=== PATIENT | male | born 1985 | race Hispanic/Latino ===

== ENCOUNTER 2024-10-23 07:11 | Emergency (ER) | payer BC ==
--- OUTSIDE RECORDS SUMMARY | 2024-10-23 07:16 | XMS REPORT | Continuity of Care Document ---
Author Name Unknown Address [address] [facility] [place] [address] [facility] Address [address] [facility] [address] [place] [address] Care Team Providers Care Horse Racing Analyst Name Role Phone Brooek Christianson Attending Clinician Unavail able No, PCP Attending Clinician Unavailable Linda Trejo Attending Clinician Unavailable Jolynn Attending Clinician Unavailable Amber Baptiste RN Attending Clinician [phone] Jennifer Beck MD Attending Clinician [phone] Sawyer Pollard MD Attending Clinician [phone] JENNIFER BECK Attending Clinician Unavailable Jolynn Admitting Clinician Unavailable Sawyer Pollard MD Admitting Clinician [phone] Payers Payer Name Policy Type Policy Number Effective Date Expirati on Date Source Blue [employer] [place] [employer] of [place] 6 [id number] 2023 00:00:00 [facility] [place] [id number] 2018 00:00:00 Problems Condition Name Condition Details Condition Category Status Onset Date Resolution Date Last Treatment Date Treating Clinician Comments Source Atypical chest pain Atypical chest pain Disease Active 11-17 00:00: 00 [facility] Pneumonia due to COVID-19 virus Pneumonia due to COVID-19 virus Disease Active 11-16 00:00: 00 [facility] FRANCO (dyspnea on exertion) FRANCO (dyspnea on exertion) Disease Active 11-16 00:00: 00 [facility] Abnormal EKG Abnormal EKG Disease Active 11-16 00:00: 00 [facility] [id number] 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 [facility] [id number] Hair loss Problem Active Com [facility] [id number] History of COVID-19 Problem Active [facility] [id number] Erectile dysfunctio n, unspecifie d erectile dysfunctio n type Problem [facility] [id number] Overweight Problem Com [facility] Contractur e of right ankle Contractur e of right ankle Problem [facility] Contractur e of left ankle Contractur e of left ankle Problem [facility] Allergies, Adverse Reactions, Alerts Allergy Name Allergy Type Status Severity Reaction(s) Onset Date Inactive Date Treating Clinician Comments Source NO KNOWN ALLERGIE S Drug Class Active [facility] Social History Social Habit Start Date Stop Date Quantity Comments Source History of Tobacco Use [facility] Sex Assigned At [facility] Exposure to SARS-CoV-2 (event) Yes [facility] Smoking Status Start Date Stop Date Source Unknown if ever smoked [facility] Never Smoker [facility] Medications Ordered Medication Name Filled Medication Name Start Date Stop Date Current Medication? Ordering Clinician Indication Dosage Frequency Signature (SIG) Comments Components Source Lidocaine Lidocaine 04-26 00:00: 00 No .5mL [facility] Celestone Soluspan (Betamethas one) Celestone Soluspan (Betamethas one) 04-26 00:00: 00 No .5mL [facility] Finasteride 1 MG Finasteride 1 MG 2020-08 006 00:00: 00 06-06 00:00 :00 No 1{table t} QD Finasterid e 1 MG dexamethaso ne (DECADRON PHOSPHATE) 6 mg in NaCl 0.9% (NS) 50 mL piggyback 11-20 14:00: 00 Yes 6mg 6 mg, IV Piggyback, DAILY, First dose (after last modificati on) on Wed11/20/20 at 0900, Until Discontinu ed, 50 mL [facility] cholecalcif amalia, vitamin D3, 25 mcg (1,000 unit) tablet 11-20 00:00: 00 Yes [id number] 2000U Take 2 tablets by mouth daily. [facility] zinc sulfate 50 mg zinc (220 mg) capsule 11-20 00:00: 00 Yes [id number] 220mg Take 1 capsule by mouth daily. [facility] codeine-gua ifenesin (GUAIATUSSI N AC) 10-100 mg/5 mL solution 11-19 19:59: 56 Yes 10mL Take 10 mL by mouth every 8 (eight) hours as needed for Cough. [facility] aspirin 81 mg chewable tablet 11-19 19:59: 56 Yes 81mg Take 81 mg by mouth every 12 (twelve) hours. [facility] benzonatate 100 mg capsule 11-19 19:59: 56 Yes 100mg Take 100 mg by mouth. [facility] albuterol 90 mcg/actuati on inhaler 11-19 17:12: 11-19 00:00 :00 No 2{puff} Inhale 2 Puffs every 6 (six) hours as needed for Wheezing or Shortness of Breath. [facility] azithromyci n 250 mg tablet 11-19 17:12: 11-19 00:00 :00 No 250mg Take 250 mg by mouth daily. Take 500 mg day 1, then 250 mg days 2 to 5. [facility] dexAMETHaso ne 1.5 mg tablet 11-19 17:12: 25 11-19 00:00 :00 No 4mg Take 4 mg by mouth daily. [facility] albuterol 90 mcg/actuati on inhaler 11-19 00:00: 00 Yes [id number] 2{puff} Inhale 2 Puffs every 4 (four) hours as needed for Wheezing or Shortness of Breath. [facility] ascorbic acid, vitamin C, 500 mg tablet 11-19 00:00: 00 Yes [id number] 500mg Take 1 tablet by mouth 2 (two) times daily. [facility] dexAMETHaso ne 6 mg tablet 11-19 00:00: 00 11-25 04:59 :00 No [id number] 6mg Take 1 tablet by mouth daily with breakfast for 5 days. [facility] dexamethaso ne (DECADRON PHOSPHATE) 4 mg in NaCl 0.9% (NS) 50 mL piggyback 11-18 15:00: 00 11-19 16:46 :06 No 4mg 4 mg, IV Piggyback, DAILY, First dose (after last modificati on) on Wed11/18/20 at 1000, Until Discontinu ed, 50 mL [facility] pantoprazol e (PROTONIX) EC tablet 40 mg 11-17 16:00: 00 Yes 40mg 40 mg, Oral, DAILY, First dose on Wed11/17/20 at 1100, Until Discontinu ed, Routine [facility] aspirin chewable tablet 81 mg 11-17 14:00: 00 Yes 81mg 81 mg, Oral, DAILY, First dose on Wed11/17/20 at 0900, Until Discontinu ed, Routine [facility] albuterol-i pratropium (COMBIVENT RESPIMAT) 20-100 mcg/actuati on inhaler 1 Puff 11-17 13:00: 00 Yes 1{puff} 1 Puff, Inhalation , QID, First dose on 11/17/21 at 0800, Until Discontinu ed, Routine
Is this order for a patient with suspected or confirmed COVID-19 infection? Yes [facility] azithromyci n (ZITHROMAX) 500 mg in NaCl 0.9% (NS) 250 mL VIAL-MATE IV piggyback 11-17 03:45: 00 11-17 15:47 :20 No 500mg 500 mg, IV Piggyback, Q24H ABX, First dose on 11/16/20 at 2245, Until Discontinu ed, 250 mL
Reas on for Anti-Infec tive: Empiric Therapy for Suspected Infection< br>Empiric Therapy Site: COVID
D uration of therapy: 7 days [facility] acetaminoph en (TYLENOL) tablet 650 mg 11-17 03:30: 00 11-17 03:36 :00 No 650mg 650 mg, Oral, ONCE, 1 dose, 11/16/20 at 2230, Routine [facility] dexamethaso ne (DECADRON PHOSPHATE) 6 mg in NaCl 0.9% (NS) 50 mL piggyback 11-17 02:30: 00 11-17 13:30 :20 No 6mg 6 mg, IV Piggyback, DAILY, First dose on 11/16/20 at 2130, Until Discontinu ed, 50 mL [facility] benzonatate (TESSALON PERLES) capsule 100 mg 11-17 02:29: 42 Yes 100mg 100 mg, Oral, TIDPRN, Starting 11/16/20 at 212, Until Discontinu ed, Routine, Cough [facility] albuterol-i pratropium (COMBIVENT RESPIMAT) 20-100 mcg/actuati on inhaler 1 Puff 11-17 02:29: 03 Yes 1{puff} 1 Puff, Inhalation , Q6HPRN, Starting 11/16/20 at 2128, Until Discontinu ed, Routine, Wheezing, Shortness of Breath
Is this order for a patient with suspected or confirmed COVID-19 infection? Yes [facility] ascorbic acid (vitamin C) (VITAMIN C) tablet 500 mg 11-17 01:00: 00 Yes 500mg 500 mg, Oral, BID, First dose on 11/16/20 at 2000, Until Discontinu ed, Routine [facility] alum-mag hydroxide-s imeth (MAALOX PLUS / MAG-AL PLUS) 200-200-20 mg/5 mL suspension 30 mL 11-17 00:00: 00 Yes 30mL 30 mL, Oral, Q6HPRN, Starting 11/16/20 at 1900, Until Discontinu ed, Routine, Indigestio n, Heartburn, Gas [facility] enoxaparin (LOVENOX) injection 40 mg 11-16 22:00: 00 Yes 40mg 40 mg, Subcutaneo us, DAILY, First dose on 11/16/20 at 1700, Until Discontinu ed, Routine [facility] aspirin tablet 325 mg 11-16 21:15: 00 11-16 20:56 :00 No 325mg 325 mg, Oral, ONCE, 1 dose, 11/16/20 at 1615, Routine [facility] zinc sulfate (ORAZINC) capsule 220 mg 11-16 21:00: 00 Yes 220mg 220 mg, Oral, DAILY, First dose on 11/16/20 at 1600, Until Discontinu ed, Routine [facility] cholecalcif amalia (vitamin D3) tablet 1,000 Units 11-16 21:00: 00 Yes 1000U 1,000 Units, Oral, DAILY, First dose on 11/16/20 at 1600, Until Discontinu ed, Routine [facility] codeine-gua ifenesin (ROBITUSSIN AC) 10-100 mg/5 mL solution 5 mL 11-16 20:13: 46 Yes 5mL 5 mL, Oral, Q6HPRN, Starting 11/16/20 at 1513, Until Discontinu ed, Routine, Cough [facility] HYDROcodone -acetaminop hen (NORCO 5) 5-325 mg tablet 1 tablet 11-16 20:10: 03 11-18 20:09 :03 No 1{tbl} 1 tablet, Oral, Q6HPRN, Starting 11/16/20 at 1510, Until 11/18/20 at 1509, Routine, Pain (scale 4-6) [facility] acetaminoph en (TYLENOL) tablet 650 mg 11-16 20:09: 52 Yes 650mg 650 mg, Oral, Q6HPRN, Starting 11/16/20 at 1509, Until Discontinu ed, Routine, Pain (scale 1-3), Temp > 38.5 C [facility] NaCl 0.9% (NS) bolus infusion 1,000 mL 11-16 20:00: 00 11-16 20:00 :01 No 1000mL at 999 mL/hr, 1,000 mL, IV Infusion, ONCE, 1 dose, 11/16/20 at 1500, STAT [facility] iohexol (OMNIPAQUE 350 BULK-100 mL) injection 100 mL 11-16 18:30: 00 11-16 18:20 :00 No [id number] 100mL 100 mL, Intravenou s, ONCE, 1 dose, 11/16/20 at 1330, Routine [facility] Finasteride 1 MG Finasteride 1 MG No 1{table t} QD Finasterid e 1 MG tadalafil 5 mg tablet TAKE ONE (1) TABLET(S) BY MOUTH DAILY. tadalafil 5 mg tablet TAKE ONE (1) TABLET(S) BY MOUTH DAILY. No tadalafil 5 mg tablet TAKE ONE (1) TABLET(S) BY MOUTH DAILY. [facility] Vital Signs Vital Name Observation Time Observation Value Comments S ource height 2024-07-04 15:30:00 65 [in_i] Commo n [facility] weight 2024-07-04 15:30:00 157.4 [lb_av] Co mmon [facility] temperature 2024-07-04 15:30:00 97.6 [degF] Com mon [facility] bmi 2024-07-04 15:30:00 26.19 kg/m2 Comm on [facility] oximetry 2024-07-04 15:30:00 98 % Commo n [facility] respiratory rate 2024-07-04 15:30:00 16 /min Common [facility] blood pressure systolic 2024-07-04 15:30:00 118 mm[Hg] [facility] blood pressure diastolic 2024-07-04 15:30:00 66 mm[Hg] [facility] height 2023-04-26 08:00:00 65 [in_i] Commo n [facility] weight 2023-04-26 08:00:00 157 [lb_av] Comm on [facility] temperature 2023-04-26 08:00:00 98.2 [degF] Com mon [facility] bmi 2023-04-26 08:00:00 26.12 kg/m2 Comm on [facility] blood pressure systolic 2023-04-26 08:00:00 120 mm[Hg] [facility] blood pressure diastolic 2023-04-26 08:00:00 84 mm[Hg] Common [facility] BP Diastolic 2022-07-14 00:00:00 75 mm[Hg] Barb bri [facility] Height 2022-07-14 00:00:00 65 [in_i] [facility] BP Systolic 2022-07-14 00:00:00 117 mm[Hg] [facility] Body Weight 2022-07-14 00:00:00 160 [lb_av] [facility] height 2021-06-04 13:40:00 65 [in_i] Commo n [facility] weight 2021-06-04 13:40:00 162.2 [lb_av] Co mmon [facility] temperature 2021-06-04 13:40:00 97.5 [degF] Com [facility] bmi 2021-06-04 13:40:00 26.99 kg/m2 Comm on [facility] oximetry 2021-06-04 13:40:00 98 % Commo n [facility] respiratory rate 2021-06-04 13:40:00 16 /min [facility] blood pressure systolic 2021-06-04 13:40:00 98 mm[Hg] Common [facility] blood pressure diastolic 2021-06-04 13:40:00 58 mm[Hg] [facility] temperature 2021-05-07 13:00:00 98.1 [degF] Com mon [facility] bmi 2021-05-07 13:00:00 27.22 kg/m2 Comm on [facility] oximetry 2021-05-07 13:00:00 98 % Commo n [facility] respiratory rate 2021-05-07 13:00:00 16 /min [facility] blood pressure systolic 2021-05-07 13:00:00 120 mm[Hg] Common [facility] blood pressure diastolic 2021-05-07 13:00:00 75 mm[Hg] [facility] height 2021-05-07 13:00:00 65 [in_i] Commo n [facility] weight 2021-05-07 13:00:00 163.6 [lb_av] Co mmon [facility] Diastolic blood pressure 2020-11-19 16:32:00 74 mm[Hg] [facility] Heart rate 2020-11-19 16:32:00 90 /min [facility] Body temperature 2020-11-19 16:32:00 36.61 Belén [facility] Oxygen saturation in Arterial blood by Pulse oximetry 2020-11-19 16:32:00 92 /min [facility] Systolic blood pressure 2020-11-19 16:32:00 122 mm[Hg] [facility] Respiratory rate 2020-11-19 16:06:00 20 /min [facility] Body height 2020-11-16 20:30:00 165.1 cm [facility] Body weight 2020-11-16 20:30:00 72.122 kg [facility] BMI 2020-11-16 20:30:00 26.46 kg/m2 [facility] Procedures Procedure Date / Time Performed Performing Clinician Source electrocardiogram 2022-07-14 00:00:00 [facility] LACTATE DEHYDROGENASE 2020-11-18 09:38:00 Melisa Pollard [facility] C-REACTIVE PROTEIN 2020-11-18 09:38:00 [facility] COMP. METABOLIC PANEL ([id number]) 2020-11-18 09:38:00 [facility] CBC WITH DIFF 2020-11-18 09:38:00 Sawyer Pollard [facility] TRANSTHORACIC ECHO (TTE) COMPLETE 2020-11-17 22:01:31 [facility] MAGNESIUM 2020-11-17 08:58:00 [facility] TROPONIN I 2020-11-17 08:58:00 [facility] 2020-11-17 08:58:00 [facility] BASIC METABOLIC PANEL (NA, K, CL, CO2, GLUCOSE, BUN, CREATININE, CA) 2020-11-17 08:58:00 [facility] LIPID PANEL ([id number])(TOTAL CHOLESTEROL, TRIGLYCERIDES, HDL) 2020-11-17 08:58:00 [facility] CBC WITH DIFF 2020-11-17 08:58:00 [facility] D-DIMER 2020-11-17 08:58:00 Peyton Rodriguez [facility] N-TERMINAL PRO-BNP 2020-11-17 08:58:00 Desmond Esquivel [facility] FREE T3 2020-11-17 08:58:00 [place], Sawyer [facility] PROCALCITONIN 2020-11-17 08:58:00 [facility] TROPONIN I 2020-11-16 23:42:00 [facility] LIPID PANEL ([id number])(TOTAL CHOLESTEROL, TRIGLYCERIDES, HDL) 2020-11-16 23:42:00 Demsond Esquivel [facility] CT CHEST PULMONARY ANGIOGRAM 2020-11-16 18:21:06 Jennifer Beck [facility] XR CHEST 1 VW 2020-11-16 17:56:18 Jennifer Beck [facility] TROPONIN I 2020-11-16 17:50:00 [facility] THYROID STIMULATING HORMONE 2020-11-16 17:50:00 [facility] HEPATIC FUNCTION PANEL ([id number]) (ALB,T.PRO,BILI T,BU/BC,ALT,AST,ALK PHOS) 2020-11-16 17:50:00 Jennifer Beck [facility] BASIC METABOLIC PANEL (NA, K, CL, CO2, GLUCOSE, BUN, CREATININE, CA) 2020-11-16 17:50:00 Jennifer Beck [facility] CBC WITH DIFF 2020-11-16 17:50:00 Jennifer Beck [facility] GLYCOSYLATED HEMOGLOBIN (A1C) 2020-11-16 17:50:00 Sawyer Pollard [facility] PROTHROMBIN TIME / INR 2020-11-16 17:50:00 Shad Beck [facility] ACTIVATED PARTIAL THRMPLAS KAILASH 2020-11-16 17:50:00 Jennifer Beck [facility] N-TERMINAL PRO-BNP 2020-11-16 17:50:00 Jennifer Beck [facility] COVID-19 (ID NOW RAPID TESTING) 2020-11-16 17:50:00 Jennifer Bcek [facility] LAB ONLY COVID INTERPRETATION 2020-11-16 17:50:00 Jennifer Beck [facility] NOTICE OF PRIVACY PRACTICES 2020-11-16 17:04:22 Doctor Unassigned, [facility] Plan of Care Planned Activity Planned Date Details Comments Source Diagnostic Test Pending 2022-07-14 00:00:00 urinalysis, dipstick [code = urinalysis, dipstick] [facility] Encounters Start Date/Time End Date/Time Encounter Type Admission Type Attending [facility] Emergency Department Facility Care Department Encounter ID Source 2024-07-04 15:00:01 Outpatient Brooke Christianson [facility] [id number] [facility] 2024-06-26 15:36:00 Outpatient Brooke Christianson [facility] [id number] [facility] 2024-02-22 16:04:00 Outpatient No, PCP [facility] [id number] [facility] 2023-04-22 11:49:00 Outpatient Linda Trejo [facility] [id number] [facility] 2023-04-20 08:10:00 Outpatient Linda Trejo [facility] [id number] [facility] 2021-08-27 14:06:59 Outpatient Linda Trejo [facility] [id number] [facility] 2021-08-27 13:57:34 Outpatient Linda Trejo [facility] [id number] [facility] 2024-08-02 00:00:00 2024-08-02 00:00:00 (TEL) STLC STLMLC [id number] [facility] 2024-07-04 00:00:00 2024-07-04 00:00:00 PREV VISIT NEW AGE 18-39 STLC STLC [id number] [facility] 2024-06-26 00:00:00 2024-06-26 00:00:00 (TEL) STLC STLMLC [id number] [facility] 2024-02-24 00:00:2024-02-24 00:00:00 (TEL) CLS CLS [id number] [facility] 2024-02-22 00:00:00 2024-02-22 00:00:00 Office Visit- New Pt.- Level 4 CLS CLS [id number] [facility] 2023-05-25 00:00:00 2023-05-25 00:00:00 (TEL) STLMLC STLMLC [id number] [facility] 2023-04-26 00:00:00 2023-04-26 00:00:00 OFFICE VISIT NEW PT LEVEL 3 STLMLC STLMLC [id number] [facility] 2022-07-23 00:00:00 2022-07-23 00:00:00 Outpatient Nguyen_S_HO U_MD VFP VFP [id number] [facility] 2022-07-22 00:00:00 2022-07-22 00:00:00 Outpatient Nguyen_S VFP VFP [id number] [facility] 2022-07-14 00:00:00 2022-07-14 00:00:00 Outpatient Nguyen_S VFP VFP [id number] [facility] 2022-07-14 00:00:00 2022-07-14 00:00:00 Mikal Rosen, DO: [id number] , [address], [place] [address] , Ph. VFP [place] - [facility] - [place] - STACIE_COSTA_Ziggy Medina (MARILIA) [id number] [facility] 2022-07-09 00:00:00 2022-07-09 00:00:00 Outpatient Nguyen_S VFP VFP [id number] [facility] 2021-06-04 00:00:00 2021-06-04 00:00:00 OFFICE VISIT EST PT LEVEL 3 STLMLC STLMLC [id number] [facility] 2021-05-23 00:00:00 2021-05-23 00:00:00 (TEL) STLMLC STLMLC [id number] [facility] 2021-05-07 00:00:00 2021-05-07 00:00:00 OFFICE VISIT NEW PT LEVEL 3 [facility] [id number] [facility] 2020-11-20 00:00:00 2020-11-20 00:00:00 Transition of Care Amber Baptiste [id number] [facility] 2020-11-16 12:18:00 2020-11-19 14:55:00 Hospital Encounter Jennifer Beck Jelani [facility] [id number] [facility] 2020-11-16 12:18:00 2020-11-16 12:18:00 Emergency X JENNIFER BECK [facility] ERT [id number] [facility] Results Test Description Test Time Test Comments Results Resul t Comments Source LAB ONLY COVID INTERPRETATION 2020-11-01 0 02:43:52 COVID DMT InterpretationInte rpretation/Recomme ndations: Molecular NAAT Tests for Active Infection with the SARS-CoV-2 Virus: The current test result is positive for the SARS-CoV-2 virus that causes COVID-19 illness. In rfvu-rn-tladylir illness, the patient may be considered no longer infectious when it has been after 10 days since symptom onset, the patient has been afebrile for 24 hours without the use of fever-reducing medications, AND other symptoms of COVID-19 are improving. However, in patients who have been severely ill with COVID-19 or are severely immunocompromised, isolation up to 20 days after symptom onset is recommended. Asymptomatic patients are considered infectious for the first 10 days subsequent to the initial positive test result. From the onset of symptoms, if any, this result is likely to remain positive up to 2-4 weeks. Tests for IgM and/or IgG Antibodies to the SARS-CoV-2 Virus: ? Testing for IgM and IgG antibodies approximately 3 weeks after illness onset will likely indicate whether the patient has produced antibodies to the SARS-CoV-2 virus. However, some patients may take longer to develop detectable antibodies, while some patients who were infected with SARS-CoV-2 may never develop antibodies. While antibodies to SARS-CoV-2 may provide some degree of immunity, at this time the strength and duration of the antibody response is unknown. Interpretation Result Comments:These interpretation comments are based upon all COVID-19 testing the patient has had at [facility], including molecular NAAT testing (more commonly known as PCR testing and Rapid ID Now testing) and antibody testing. It does not take into account any testing that a patient has had outside of the [facility] medical record. [facility] LABORATORY SERVICESCOVID [id number] Rapid ID NOW (no units) ? ? Date ? Value ? 11/16/2020 ? Positive (A) ? [facility] [id number] 13:14:27* Test Item Value Reference Range Interpretation Comme nts LDH (test code = 3102322174) 575 U/L 300-600 Lab Interpretation (test cod e = 00588-7) [facility][id number][facility]2020-[facility]-18 12:49:06* Test Item Value Reference Range Interpretation Comme nts NA (test code = 1711847898) 138 mmol/L 135-145 K (test code = 0632202005) 3.9 mmol/L 3.5-5.0 CL (test code = 2046657274) 104 mmol/L 98-108 CO2 TOTAL (test code = 0307607017) 26 mmol/L 23-31 AGAP (test code = 5857380150) 2-16 BUN (test code = 8356880346) 22 mg/dL 7-23 GLUCOSE (test code = 4151271497) 101 mg/dL 70-110 CREATININE (test code = 6544475423) 0.75 mg/dL 0.60-1.25 TOTAL BILI (test code = 3537437068) 0.6 mg/dL 0.1-1.1 CALCIUM (test code = 3760325273) 8.3 mg/dL 8.6-10.6 L T PROTEIN (test code = 7470267549) 6.4 g/dL 6.3-8.2 ALBUMIN (test code = 4963413968) 3.6 g/dL 3.5-5.0 ALK PHOS (test code = 0170611921) 76 U/L 34-122 ALTv (test code = 1742-6) 42 U/L 5-50 AST(SGOT) (test code = 7526184223) 31 U/L 13-40 eGFR (test code = 8029028363) mL/min/1.73m2 TONIA (test code = TONIA) Association of Glomerular Filtration Rate (GFR) and Staging of Kidney Disease* + --+ --+ ------+| GFR (mL/min/1.73 m2) ?| With Kidney Damage ?| ?Without Kidney Damage+ --------+ --------+ +| ?>90 ?| ?Stage one ?| ? Normal ?+ ---+ ---+ -------+| ?60-89 ?| ?Stage two ?| ? Decreased GFR ? + --+ --+ ------+| ?30-59 ?| ?Stage three ?| ? Stage three ? + --+ --+ ------+| ?15-29 ?| ?Stage four ? | ? Stage four ?+ ---+ ---+ -------+| ?<15 (or dialysis) ? ?| ?Stage five ? | ? Stage five ?+ ---+ ---+ -------+ *Each stage assumes the associated GFR level has been in effect for at least three months. ?Stages 1 to 5, with or without kidney disease, indicate chronic kidney disease. Notes: Determination of stages one and two (with eGFR >59mL/min/1.73 m2) requires estimation of kidney damage for at least three months as defined by structural or functional abnormalities of the kidney, manifested by either:Pathological abnormalities or Markers of kidney damage (including abnormalities in the composition of the blood or urine or abnormalities in imaging tests). Lab Interpretation (test code = 38892-3) Abnormal [facility] WITH [id number] 11:53:40* Test Item Value Reference Range Interpretation Comme nts WBC (test code = 6690-2) See_Comment [Automated messa ge] The system which generated this result transmitted reference range: 4.20 - 10.70 10*3/?L. The reference range was not used to interpret this result as normal/abnormal. RBC (test code = 789-8) See_Comment [Automated messa ge] The system which generated this result transmitted reference range: 4.26 - 5.52 10*6/?L. The reference range was not used to interpret this result as normal/abnormal. HGB (test code = 718-7) 14.8 g/dL 12.2-16.4 HCT (test code = 4544-3) 44.6 % 38.4-49.3 MCV (test code = 787-2) 85.4 fL 81.7-95.6 MCH (test code = 785-6) 28.4 pg 26.1-32.7 MCHC (test code = 786-4) 33.2 g/dL 31.2-35.0 RDW-SD (test code = 56097-0) 40.4 fL 38.5-51.6 RDW-CV (test code = 788-0) 12.9 % 12.1-15.4 PLT (test code = 777-3) See_Comment [Automated Greenpiea ge] The system which generated this result transmitted reference range: 150 - 328 10*3/?L. The reference range was not used to interpret this result as normal/abnormal. MPV (test code = 76416-4) 10.6 fL 9.8-13.0 NRBC/100 WBC (test code = 9675203088) See_Comment [Automated Keywee ssage] The system which generated this result transmitted reference range: 0.0 - 10.0 /100 WBCs. The reference range was not used to interpret this result as normal/abnormal. NRBC x10^3 (test code = 4931538923) <0.01 See_Comment [Automated messa ge] The system which generated this result transmitted reference range: 10*3/?L. The reference range was not used to interpret this result as normal/abnormal. GRAN MAT (NEUT) % (test code = 770-8) 77.4 % IMM GRAN % (test code = 7271619030) 0.40 % LYMPH % (test code = 736-9) 13.5 % MONO % (test code = 5905-5) 8.6 % EOS % (test code = 713-8) 0.0 % BASO % (test code = 706-2) 0.1 % GRAN MAT x10^3(ANC) (test code = 5502907634) 5.29 10*3/uL 1.99-6.95 IMM GRAN x10^3 (test code = 5467130039) 0.03 10*3/uL 0.00-0.06 LYMPH x10^3 (test code = 731-0) 0.92 10*3/uL 1.09-3.23 L MONO x10^3 (test code = 742-7) 0.59 10*3/uL 0.36-1.02 EOS x10^3 (test code = 711-2) <0.03 0.06-0.53 L BASO x10^3 (test code = 704-7) <0.03 0.01-0.09 Lab Interpretation (test code = 73839-5) [id number]03:08* Test Item Value Reference Range Interpretation Comme nts FREE T3 (test code = 3580175965) 3.71 pg/mL 2.77-5.27 Lab Interpretation (test cod e = 20487-0) [facility] 16:29:41* Test Item Value Reference Range Interpretation Comme nts Procalcitonin (test code = 5746429498) 0.07 ng/mL <0.07 H TONIA (test code = TONIA) INTERPRETATION OF PROCALCITONIN RESULTS IN ADULTS >= 18 YEARS OF AGE Initiation and discontinuation of antibiotics on patients with suspected or confirmed Lower Respiratory Tract Infection in Adults >= 18 years of age. + +-------- --------+ + -----+|Procalcitonin |Interpretation ?|Antibiotic ? ? |Considerations ? |ng/mL ? | ?|recommendation | ? + +-------- --------+ + -----+| <0.1 ? | Bacterial ? ? ?| Strongly ? ? ?| ? | ?| infection very | discouraged ? | Overruling: ? | ?| unlikely ? ? ? | ? | ? Clinically unstable ? ? ? + +-------- --------+ + ? High risk for adverse ? ? | <0.25 ?| Bacterial ? ? ?| Discouraged ? | ? outcome ? | ?| infection ? ? ?| ? | ? SEE IMPORTANT NOTE ?| ?| unlikely ? ? ? | ? | ? + +-------- --------+ + -----+| >=0.25 ? ? ? | Bacterial ? ? ?| Encouraged ? ?| ? | ?| infection ? ? ?| ? | ? | ?| likely ? | ? | Consider treatment failure ?+ +------- ---------+ -+ if levels does not decrease | >0.5 ? | Bacterial ? ? ?| Strongly ? ? ?| appropriately ? | ?| infection very | encouraged ? ?| ? | ?| likely ? | ? | ? + +-------- --------+ + -----+ Discontinuation of antibiotics in high-acuity patients with suspected or confirmed sepsis in Adults >= 18 years of age. + +-------- --------+ + -----+|Procalcitonin |Interpretation ?|Antibiotic ? ? |Considerations ? |ng/mL ? | ?|recommendation | ? + +-------- --------+ + -----+| <0.25 ?| Bacterial ? ? ?| Strongly ? ? ?| ? | ?| infection very | discouraged ? | Overruling: ? | ?| unlikely ? ? ? | ? | ? Clinically unstable ? ? ? + +-------- --------+ + ? High risk for adverse ? ? | <0.5 or drop | Bacterial ? ? ?| Discouraged ? | ? outcome ? | >80% from ? ?| infection ? ? ?| ? | ? SEE IMPORTANT NOTE ?| highest PCT ?| unlikely ? ? ? | ? | ? | level ?| ?| ? | ? + +-------- --------+ + -----+| >=0.5 ?| Bacterial ? ? ?| Encouraged ? ?| ? | ?| infection ? ? ?| ? | ? | ?| likely ? | ? | Consider treatment failure ?+ +------- ---------+ -+ if levels does not decrease | >1.0 ? | Bacterial ? ? ?| Strongly ? ? ?| appropriately ? | ?| infection very | encouraged ? ?| ? | ?| likely ? | ? | ? + +-------- --------+ + -----+ Percentage of drop of Procalcitonin calculation for Discontinuation of antibiotics in high-acuity patients with suspected or confirmed sepsis in Adults >= 18 years of age. ? Procalcitonin highest{}-Procalcitonin current{}Delta Procalcitonin = x100% ? Procalcitonin current {} IMPORTANT NOTE: Procalcitonin may be elevated without bacterial infection by physiologic stress related to trauma, kevin, chronic dialysis, metastatic cancer, surgery in the past seven days, malaria, some fungal infections, and some forms of vasculitis. The interpretation algorithm may not apply to patients with immunosuppression (equivalent of >10 mg of prednisone daily), HIV with CD4 cell count < 350 cells/mm3, active malignancy on systemic chemotherapy, solid organ transplant or hematopoietic stem cell transplantation, or hospital acquired pneumonia. Additionally, some clinical trials of procalcitonin have excluded patients with shock requiring vasopressor use, acute respiratory failure requiring mechanical ventilation, or those with known lung abscess/empyema. For further information please refer to:[email or web address] Lab Interpretation (test code = 94050-0) [facility] [id number] 16:23:02* Test Item Value Reference Range Interpretation Comme nts FREE T4 (test code = 6623585548) See_Comment [Automated messa ge] The system which generated this result transmitted reference range: 0.78 - 2.20 ng/dL:. The reference range was not used to interpret this result as normal/abnormal. Lab Interpretation (test code = 87276-4) [facility] [id number] 16:05:24* Test Item Value Reference Range Interpretation Comme nts NT-proBNP (test code = 6323274899) 120 pg/mL See_Comment [Automated message] The system which generated this result transmitted reference range: <=125. The reference range was not used to interpret this result as normal/abnormal. TONIA (test code = TONIA) Biotin has been reported to cause a negative bias, interpret results relative to patient's use of biotin. Lab Interpretation (test code = 56837-3) [id number] 10:52:53* Test Item Value Reference Range Interpretation Comments D-DIMER (test code = 8041733913) See_Comment [Automated message] The system which generated this result transmitted reference range: <0.41 ?g/mL (FEU). The reference range was not used to interpret this result as normal/abnormal. TONIA (test code = TONIA) This test may be used in conjunction with a clinical pretest probability (PTP) assessment model to exclude venous thromboembolism (VTE) in patients suspected of deep venous thrombosis (DVT) and pulmonary embolism (PE) A D-Dimer value less than 0.50 ?g/ml (FEU) has a negative predicative value of 96 to 100% (95% CI)and 97 to 100% (95% CI) as an aid in the diagnosis of deep vein thrombosis (DVT) and pulmonary embolism when there is low or moderate pretest probability of PE or DVT. D-Dimer values are expressed in initial fibrinogen equivalent units (FEU)" The assay results should be used with other information, including the clinical context, in forming a diagnosis. Lab Interpretation (test code = 16244-6) [facility] [id number] 10:47:31* Test Item Value Reference Range Interpretation Comme nts TROPONIN I (test code = 7511757291) 0.002 ng/mL See_Comment [Automated message] The system which generated this result transmitted reference range: <=0.034. The reference range was not used to interpret this result as normal/abnormal. TONIA (test code = TONIA) Equal or Less than 0.034 ng/ml---Normal ?Note: Cardiac troponin begins to rise 3-4 hours after the onset of ischemia. Repeat in 4-6 hours if the sample was drawn within 3-4 hours of the onset of the symptom and found normal. Between 0.035 and 0.120 ng/mL--- Borderline. Questionable myocardial injury or necrosis ? ?Note: Serial measurement may be necessary to confirm or exclude the diagnosis of myocardial injury or necrosis; Clinical correlation (symptoms, EKGs, imaging studies, and others) required; Repeat in 4-6 hours if clinically indicated. ? Equal or Higher than 0.121 ng/mL---Abnormal. Myocardial Injury or Necrosis Likely ? Biotin has been reported to cause a negative bias, interpret results relative to patient's use of biotin. ? Lab Interpretation (test code = 09214-0) [facility] [id number] 10:39:13* Test Item Value Reference Range Interpretation Comme nts MAGNESIUM (test code = 6549369027) 1.9 mg/dL 1.7-2.4 Lab Interpretation (test cod e = 58806-1) [facility] (Total Cholesterol, Triglycerides, HDL)2020-11-17 10:39:13* Test Item Value Reference Range Interpretation Comme nts CHOL (test code = 3429470200) 119 mg/dL 120-200 L HDL (test code = 7604932123) 45 mg/dL >40 HDLC RATIO (test code = 0150396578) See_Comment [Automated Monstrous] The system which generated this result transmitted reference range: <=5.0. The reference range was not used to interpret this result as normal/abnormal. TRIG (test code = 2655011432) 141 mg/dL 30-170 LDL CHOL (test code = 34230-0) 46 mg/dL See_Comment [Automated Monstrous] The system which generated this result transmitted reference range: <=160. The reference range was not used to interpret this result as normal/abnormal. VLDL (test code = 8336250731) 28 mg/dL 5-60 Lab Interpretation (test code = 88554-7) Abnormal [facility] Metabolic Panel (NA, K, CL, CO2, GLUCOSE, BUN, CREATININE, CA)2020-11-17 10:38:53* Test Item Value Reference Range Interpretation Comme nts NA (test code = 5000008745) 137 mmol/L 135-145 K (test code = 9422452938) 4.0 mmol/L 3.5-5.0 CL (test code = 3607954559) 105 mmol/L 98-108 CO2 TOTAL (test code = 7979831251) 28 mmol/L 23-31 AGAP (test code = 7656394728) 2-16 BUN (test code = 5587414338) 21 mg/dL 7-23 GLUCOSE (test code = 5177649156) 143 mg/dL 70-110 H CREATININE (test code = 5882617340) 0.76 mg/dL 0.60-1.25 CALCIUM (test code = 1618066414) 8.3 mg/dL 8.6-10.6 L eGFR (test code = 7865742697) mL/min/1.73m2 TONIA (test code = TONIA) Association of Glomerular Filtration Rate (GFR) and Staging of Kidney Disease* + --+ --+ ------+| GFR (mL/min/1.73 m2) ?| With Kidney Damage ?| ?Without Kidney Damage+ --------+ --------+ +| ?>90 ?| ?Stage one ?| ? Normal ?+ ---+ ---+ -------+| ?60-89 ?| ?Stage two ?| ? Decreased GFR ? + --+ --+ ------+| ?30-59 ?| ?Stage three ?| ? Stage three ? + --+ --+ ------+| ?15-29 ?| ?Stage four ? | ? Stage four ?+ ---+ ---+ -------+| ?<15 (or dialysis) ? ?| ?Stage five ? | ? Stage five ?+ ---+ ---+ -------+ *Each stage assumes the associated GFR level has been in effect for at least three months. ?Stages 1 to 5, with or without kidney disease, indicate chronic kidney disease. Notes: Determination of stages one and two (with eGFR >59mL/min/1.73 m2) requires estimation of kidney damage for at least three months as defined by structural or functional abnormalities of the kidney, manifested by either:Pathological abnormalities or Markers of kidney damage (including abnormalities in the composition of the blood or urine or abnormalities in imaging tests). Lab Interpretation (test code = 07931-8) Abnormal [facility] with [id number] 10:19:49* Test Item Value Reference Range Interpretation Comme nts WBC (test code = 6690-2) See_Comment [Performance Lab] The system which generated this result transmitted reference range: 4.20 - 10.70 10*3/?L. The reference range was not used to interpret this result as normal/abnormal. RBC (test code = 789-8) See_Comment [Performance Lab] The system which generated this result transmitted reference range: 4.26 - 5.52 10*6/?L. The reference range was not used to interpret this result as normal/abnormal. HGB (test code = 718-7) 13.6 g/dL 12.2-16.4 HCT (test code = 4544-3) 41.5 % 38.4-49.3 MCV (test code = 787-2) 86.3 fL 81.7-95.6 MCH (test code = 785-6) 28.3 pg 26.1-32.7 MCHC (test code = 786-4) 32.8 g/dL 31.2-35.0 RDW-SD (test code = 19380-2) 40.5 fL 38.5-51.6 RDW-CV (test code = 788-0) 12.9 % 12.1-15.4 PLT (test code = 777-3) See_Comment [Automated messa ge] The system which generated this result transmitted reference range: 150 - 328 10*3/?L. The reference range was not used to interpret this result as normal/abnormal. MPV (test code = 86309-0) 10.8 fL 9.8-13.0 NRBC/100 WBC (test code = 1196485906) See_Comment [Automated Keywee ssage] The system which generated this result transmitted reference range: 0.0 - 10.0 /100 WBCs. The reference range was not used to interpret this result as normal/abnormal. NRBC x10^3 (test code = 4349033276) <0.01 See_Comment [Automated messa ge] The system which generated this result transmitted reference range: 10*3/?L. The reference range was not used to interpret this result as normal/abnormal. GRAN MAT (NEUT) % (test code = 770-8) 83.1 % IMM GRAN % (test code = 6408890348) 0.30 % LYMPH % (test code = 736-9) 8.5 % MONO % (test code = 5905-5) 7.9 % EOS % (test code = 713-8) 0.0 % BASO % (test code = 706-2) 0.2 % GRAN MAT x10^3(ANC) (test code = 0182784297) 5.44 10*3/uL 1.99-6.95 IMM GRAN x10^3 (test code = 0262975767) <0.03 0.00-0.06 LYMPH x10^3 (test code = 731-0) 0.56 10*3/uL 1.09-3.23 L MONO x10^3 (test code = 742-7) 0.52 10*3/uL 0.36-1.02 EOS x10^3 (test code = 711-2) <0.03 0.06-0.53 L BASO x10^3 (test code = 704-7) <0.03 0.01-0.09 Lab Interpretation (test code = 53644-1) [facility] ([facility])(TOTAL CHOLESTEROL, TRIGLYCERIDES, HDL)2020-11-17 06:04:12* Test Item Value Reference Range Interpretation Comme nts CHOL (test code = 2729739986) 128 mg/dL 120-200 HDL (test code = 9751490347) 48 mg/dL >40 HDLC RATIO (test code = 6698161200) See_Comment [Automated Monstrous] The system which generated this result transmitted reference range: <=5.0. The reference range was not used to interpret this result as normal/abnormal. TRIG (test code = 6761048205) 127 mg/dL 30-170 LDL CHOL (test code = 96903-5) 55 mg/dL See_Comment [Automated Monstrous] The system which generated this result transmitted reference range: <=160. The reference range was not used to interpret this result as normal/abnormal. VLDL (test code = 8523384184) 25 mg/dL 5-60 Lab Interpretation (test code = 73068-9) [facility] [id number] 00:32:18* Test Item Value Reference Range Interpretation Comme nts TROPONIN I (test code = 7714300897) 0.004 ng/mL See_Comment [Automated message] The system which generated this result transmitted reference range: <=0.034. The reference range was not used to interpret this result as normal/abnormal. TONIA (test code = TONIA) Equal or Less than 0.034 ng/ml---Normal ?Note: Cardiac troponin begins to rise 3-4 hours after the onset of ischemia. Repeat in 4-6 hours if the sample was drawn within 3-4 hours of the onset of the symptom and found normal. Between 0.035 and 0.120 ng/mL--- Borderline. Questionable myocardial injury or necrosis ? ?Note: Serial measurement may be necessary to confirm or exclude the diagnosis of myocardial injury or necrosis; Clinical correlation (symptoms, EKGs, imaging studies, and others) required; Repeat in 4-6 hours if clinically indicated. ? Equal or Higher than 0.121 ng/mL---Abnormal. Myocardial Injury or Necrosis Likely ? Biotin has been reported to cause a negative bias, interpret results relative to patient's use of biotin. ? Lab Interpretation (test code = 73590-0) [facility] Hemoglobin (A1C)2020-11-17 00:23:19* Test Item Value Reference Range Interpretation Comme nts HGB A1C (test code = 4548-4) 5.6 % 4.0-5.7 TONIA (test code = TONIA) Reference RangesNormal: <5.7%Prediabetes: 5.7 - 6.4%Diabetes: > 6.5% Lab Interpretation (test code = 15155-4) [facility]Thy[facility]ulating Hormone (TSH)2020-11-16 23:51:54* Test Item Value Reference Range Interpretation Comme nts TSH (test code = 3770229918) See_Comment L Biotin has been reported to cause a negative bias, interpret results relative to patient's use of biotin. [Automated message] The system which generated this result transmitted reference range: 0.45 - 4.70 mIU/L. The reference range was not used to interpret this result as normal/abnormal. Lab Interpretation (test code = 96596-9) Abnormal [facility] 1 [id number] 18:56:26Bilateral interstitial abnormality and patchy airspace opacities concerningfor underlying atypical infection such as Covid 19. Preliminary Report Dictated by Resident: Mik Rizo MD., have reviewed this study and agree with theabove report.EXAM: XR CHEST 1 VW 11/16/2020 12:52 PM HISTORY: 35 years-old Male with dyspnea COMPARISON: CR,none TECHNIQUE: AP chest radiograph. FINDINGS: The lungs are underinflated. Scattered bilateral patchy airspace andinterstitial abnormalities concerning for infection. No pleural effusion orpneumothorax. The cardiomediastinal silhouette is normal in size. No acute osseous abnormalities. [facility], Radiant Results Inft User - 11/16/2020 1:57 PMCDTEXAM: XR CHEST 1 VW 11/16/2020 12:52 PMHISTORY: 35 years-old Male with dyspnea COMPARISON: CR,none TECHNIQUE: AP chest radiograph.FINDINGS:The lungs are underinflated. Scattered bilateral patchy airspace andinterstitial abnormalities concerning for infection. No pleural effusion orpneumothorax. The cardiomediastinal silhouette is normal in size.No acute osseous abnormalities.IMPRESSIONBilateralinterstitial abnormality and patchy airspace opacities concerningfor underlying atypical infection such as Covid 19.Preliminary Report Dictated by Resident: Mik Alberto MD., have reviewed this study and agree with theabove report.[facility] 2020-11-16 18:55:00No acute or chronic pulmonary embolism through the level of the proximalsubsegmental branches. Bilateral multifocal patchy and confluent groundglass airspace opacitiescompatible with patient's document history of COVID-19. Preliminary Report Dictated by Resident: Mik Dodd MD., have reviewed this study and agree with theabove report.PROCEDURE: CT CHEST WITH CONTRAST- CHEST PE PROTOCOL CLINICAL INDICATION: PE suspected, intermediate prob, positive D-dimer ? Comparison: ?Same day radiograph TECHNIQUE: Volumetric helical CT angiogram was performed of the chest (lungapices to bases) with IV contrast. Images were reconstructed at 1.25 mmslice thickness. Corresponding axial, sagittal and coronal MIP images wereperformed. Axial MIPs and coronal and sagittal MPR imageswere generatedand reviewed.. FINDINGS: HEART AND GREAT VESSELS: Contrast bolus timing is adequate to borderlinesuboptimal for evaluation of pulmonary arterial vasculature. No fillingdefects are seen through the level of the proximal subsegmental pulmonaryarteries.The pulmonary trunk is normal in caliber. The thoracic aorta is normal in caliber. The heart is normal in size. No pericardial effusion. No coronary arterycalcifications. MEDIASTINUM, LYMPH NODES AND LOWER NECK: Partially visualized thyroid isunremarkable. Mildly prominent right hilar lymph node measures 1.2 cm in short axis,likely reactive. No left hilar, mediastinal or axillary lymphadenopathy. LUNGS AND PLEURA: Multiple bilateral irregular patchy groundglass/airspaceopacities. No pleural abnormality detected. Central airways are patent. VISUALIZED UPPER ABDOMEN: The included solid organs and hollow viscusappear within normallimits. OSSEOUS STRUCTURES AND SOFT TISSUES: No focal osseous lesions are detected.Multilevel Schmorl's nodes most prominent within the thoracolumbarjunction. [facility], Radiant Results Inft User - 11/16/2020 1:56 PM CDTPROCEDURE: CT CHEST WITH CONTRAST- CHEST PE PROTOCOLCLINICAL INDICATION: PE suspected, intermediate prob, positive D-dimer Comparison: Same day radiographTECHNIQUE: Volumetric helical CT angiogram was performed of the chest (lungapices to bases) with IV contrast. Images were reconstructed at 1.25 mmslice thickness. Corresponding axial, sagittal and coronal MIP images wereperformed.Axial MIPs and coronal and sagittal MPR images were generatedand reviewed..FINDINGS:HEART AND GREATVESSELS: Contrast bolus timing is adequate to borderlinesuboptimal for evaluation of pulmonary arterial vasculature. No fillingdefects are seen through the level of the proximal subsegmental pulmonary arteries.The pulmonary trunk is normal in caliber.The thoracic aorta is normal in caliber.The heartis normal in size. No pericardial effusion. No coronary arterycalcifications.MEDIASTINUM, LYMPH NODES AND LOWER NECK: Partially visualized thyroid isunremarkable.Mildly prominent right hilar lymph node measures 1.2 cm in short axis,likely reactive. No left hilar, mediastinal or axillary lymphadenopathy.LUNGS AND PLEURA: Multiple bilateral irregular patchy groundglass/airspaceopacities. No pleuralabnormality detected.Central airways are patent. VISUALIZED UPPER ABDOMEN: The included solid organs and hollow viscusappear within normal limits.OSSEOUS STRUCTURES AND SOFT TISSUES: No focal osseouslesions are detected.Multilevel Schmorl's nodes most prominent within the thoracolumbarjunction. IMPRESSIONNo acute or chronic pulmonary embolism through the level of the proximalsubsegmental branches.Bilateral multifocal patchy and confluent groundglass airspace opacitiescompatible with patient's document history of COVID-19.Preliminary Report Dictated by Resident: Mik Vieyra MD., have reviewed this study and agree with theabove report. [facility] HospitalTrjennifern [id number] 18:33:11* Test Item Value Reference Range Interpretation Comme nts TROPONIN I (test code = 7751198758) 0.002 ng/mL See_Comment [Automated message] The system which generated this result transmitted reference range: <=0.034. The reference range was not used to interpret this result as normal/abnormal. TONIA (test code = TONIA) Equal or Less than 0.034 ng/ml---Normal ?Note: Cardiac troponin begins to rise 3-4 hours after the onset of ischemia. Repeat in 4-6 hours if the sample was drawn within 3-4 hours of the onset of the symptom and found normal. Between 0.035 and 0.120 ng/mL--- Borderline. Questionable myocardial injury or necrosis ? ?Note: Serial measurement may be necessary to confirm or exclude the diagnosis of myocardial injury or necrosis; Clinical correlation (symptoms, EKGs, imaging studies, and others) required; Repeat in 4-6 hours if clinically indicated. ? Equal or Higher than 0.121 ng/mL---Abnormal. Myocardial Injury or Necrosis Likely ? Biotin has been reported to cause a negative bias, interpret results relative to patient's use of biotin. ? Lab Interpretation (test code = 46149-7) [id number] 18:30:13* Test Item Value Reference Range Interpretation Comme [facility] NT-proBNP (test code = 9359306241) 60 pg/mL See_Comment [Automated message] The system which generated this result transmitted reference range: <=125. The reference range was not used to interpret this result as normal/abnormal. TONIA (test code = TONIA) Biotin has been reported to cause a negative bias, interpret results relative to patient's use of biotin. Lab Interpretation (test code = 22317-2) [id number]:25:50* Test Item Value Reference Range Interpretation Comme [facility] APTT Patient (test code = 3173-2) See_Comment [Automated message] The system which generated this result transmitted reference range: 23 - 38 Seconds. The reference range was not used to interpret this result as normal/abnormal. TONIA (test code = TONIA) The [facility] patient population mean normal value for aPTT is 30 seconds. Lab Interpretation (test code = 42241-5) [facility] / [id number] 18:23:49 * Test Item Value Reference Range Interpretation Comme nts PROTIME PATIENT (test code = 5964-2) See_Comment [Automated [employer]] The system which generated this result transmitted reference range: 12.0 - 14.7 Seconds. The reference range was not used to interpret this result as normal/abnormal. INR (test code = 6301-6) Normal INR <1.1; Warfarin Therapeutic range 2.0 to 3.0 or 2.5 to 3.5, depending upon the indications. Lab Interpretation (test code = 48603-6) Normal [facility] Metabolic Panel (NA, K, CL, CO2, GLUCOSE, BUN, CREATININE, CA)2020-11-16 18:22:48* Test Item Value Reference Range Interpretation Comme [facility] NA (test code = 5763304925) 142 mmol/L 135-145 K (test code = 4834925345) 3.5 mmol/L 3.5-5.0 CL (test code = 3376432082) 103 mmol/L 98-108 CO2 TOTAL (test code = 7006270047) 30 mmol/L 23-31 AGAP (test code = 0832334592) 2-16 BUN (test code = 1102746168) 20 mg/dL 7-23 GLUCOSE (test code = 7903237928) 140 mg/dL 70-110 H CREATININE (test code = 4667908691) 0.88 mg/dL 0.60-1.25 CALCIUM (test code = 8641445357) 9.1 mg/dL 8.6-10.6 eGFR (test code = 6664383124) mL/min/1.73m2 TONIA (test code = TONIA) Association of Glomerular Filtration Rate (GFR) and Staging of Kidney Disease* + --+ --+ ------+| GFR (mL/min/1.73 m2) ?| With Kidney Damage ?| ?Without Kidney Damage+ --------+ --------+ +| ?>90 ?| ?Stage one ?| ? Normal ?+ ---+ ---+ -------+| ?60-89 ?| ?Stage two ?| ? Decreased GFR ? + --+ --+ ------+| ?30-59 ?| ?Stage three ?| ? Stage three ? + --+ --+ ------+| ?15-29 ?| ?Stage four ? | ? Stage four ?+ ---+ ---+ -------+| ?<15 (or dialysis) ? ?| ?Stage five ? | ? Stage five ?+ ---+ ---+ -------+ *Each stage assumes the associated GFR level has been in effect for at least three months. ?Stages 1 to 5, with or without kidney disease, indicate chronic kidney disease. Notes: Determination of stages one and two (with eGFR >59mL/min/1.73 m2) requires estimation of kidney damage for at least three months as defined by structural or functional abnormalities of the kidney, manifested by either:Pathological abnormalities or Markers of kidney damage (including abnormalities in the composition of the blood or urine or abnormalities in imaging tests). Lab Interpretation (test code = 69697-4) [facility] (ALB, T.PRO, BILI T, BU/BC, ALT, AST, ALK PHOS)2020-11-16 18:22:28* Test Item Value Reference Range Interpretation Comme nts TOTAL BILI (test code = 8568951274) 0.7 mg/dL 0.1-1.1 BILI UNCON (test code = 1000905554) 0.5 mg/dL 0.1-1.1 BILI CONJ (test code = 4996132130) 0.0 mg/dL 0.0-0.3 T PROTEIN (test code = 9621861067) 7.7 g/dL 6.3-8.2 ALBUMIN (test code = 5252389257) 4.5 g/dL 3.5-5.0 ALK PHOS (test code = 7794885334) 91 U/L 34-122 ALTv (test code = 1742-6) 47 U/L 5-50 AST(SGOT) (test code = 7040443586) 69 U/L 13-40 H Lab Interpretation (test cod e = 67295-2) [facility] RAPID TESTING)2020-11-16 18:15:07* Test Item Value Reference Range Interpretation Comme nts SARS-CoV-2 Rapid ID NOW (test code = 18707-1) Positive Not Detected A TONIA (test code = TONIA) ID NOW COVID-19 As say is an isothermal nucleic acid amplification test intended for the qualitative detection of nucleic acid from SARS-CoV-2 viral RNA in nasopharyngeal ([employer]) specimens. It is used under Emergency Use Authorization (EUA) by FDA. The limit of detection (LOD) of the assay is 125 Genome Equivalents/mL. A positive result is indicative of the presence of SARS-CoV-2 RNA. ?Clinical correlation with patient history and other diagnostic information is necessary to determine patient infection status. A negative (Not Detected) result does not preclude SARS-CoV-2 infection. In patients with clinical symptoms and other tests that are consistent with SARS-CoV-2 infection, negative results should be treated as presumptive negative and a new specimen should be tested with alternative PCR molecular test. Invalid: Please collect a new specimen for repeat patient testing if clinically indicated. Lab Interpretation (test code = 76360-5) Abnormal [facility] with [id number] 18:06:28* Test Item Value Reference Range Interpretation Comme nts WBC (test code = 6690-2) See_Comment [Automated [employer]] The system which generated this result transmitted reference range: 4.20 - 10.70 10*3/?L. The reference range was not used to interpret this result as normal/abnormal. RBC (test code = 789-8) See_Comment H [Automated [employer]] The system which generated this result transmitted reference range: 4.26 - 5.52 10*6/?L. The reference range was not used to interpret this result as normal/abnormal. HGB (test code = 718-7) 15.8 g/dL 12.2-16.4 HCT (test code = 4544-3) 47.4 % 38.4-49.3 MCV (test code = 787-2) 84.5 fL 81.7-95.6 MCH (test code = 785-6) 28.2 pg 26.1-32.7 MCHC (test code = 786-4) 33.3 g/dL 31.2-35.0 RDW-SD (test code = 88753-9) 39.6 fL 38.5-51.6 RDW-CV (test code = 788-0) 12.8 % 12.1-15.4 PLT (test code = 777-3) See_Comment [Automated messa ge] The system which generated this result transmitted reference range: 150 - 328 10*3/?L. The reference range was not used to interpret this result as normal/abnormal. MPV (test code = 62742-4) 10.5 fL 9.8-13.0 NRBC/100 WBC (test code = 4371037995) See_Comment [Automated [employer] ssage] The system which generated this result transmitted reference range: 0.0 - 10.0 /100 WBCs. The reference range was not used to interpret this result as normal/abnormal. NRBC x10^3 (test code = 9810549181) <0.01 See_Comment [Automated messa ge] The system which generated this result transmitted reference range: 10*3/?L. The reference range was not used to interpret this result as normal/abnormal. GRAN MAT (NEUT) % (test code = 770-8) 87.4 % IMM GRAN % (test code = 6873492279) 0.30 % LYMPH % (test code = 736-9) 6.1 % MONO % (test code = 5905-5) 5.9 % EOS % (test code = 713-8) 0.1 % BASO % (test code = 706-2) 0.2 % GRAN MAT x10^3(ANC) (test code = 2560209412) 7.81 10*3/uL 1.99-6.95 H IMM GRAN x10^3 (test code = 5149206029) 0.03 10*3/uL 0.00-0.06 LYMPH x10^3 (test code = 731-0) 0.55 10*3/uL 1.09-3.23 L MONO x10^3 (test code = 742-7) 0.53 10*3/uL 0.36-1.02 EOS x10^3 (test code = 711-2) <0.03 0.06-0.53 L BASO x10^3 (test code = 704-7) <0.03 0.01-0.09 Lab Interpretation (test code = 17400-9) Abnormal [facility]
[2024-10-23] MEDS ORDERED: ACETAMINOPHEN 500 MG TAB ONE (08:20)
[2024-10-23] MEDS ORDERED: IBUPROFEN 400 MG TAB ONE (08:21)
--- NOTE | 2024-10-23 08:43 | RAD REPORT ---
Procedure: Chest Single View HISTORY: Cough COMPARISON: none FINDINGS: The lungs appear clear of acute infiltrate. No significant pleural effusion noted. The heart is normal size. IMPRESSION: No acute abnormality is displayed.
[2024-10-23] MEDS ORDERED: BENZONATATE 100 MG CAP PO ONE (08:51)
[2024-10-23 08:58] LABS: Influenza A Ag Negative; Influenza B Ag Negative; SARS-CoV-2 Antigen Rapid Res Negative (Negative)
--- NOTE | 2024-10-23 09:19 | ER ---
Nurse's Notes [facility] Name: Mejia Irene III Age: 39 yrs Sex: Male : 1985 Arrival Date: 10/23/2024 Time: 07:11 Bed DIS1 Private MD: Diagnosis: Viral infection, unspecified Presentation: 10/23 07:37 Chief complaint: Patient states: Headache, fever, cough , congestion, sneezing , iw started 3 weeks ago. Coronavirus screen: Client presents with at least one sign or symptom that may indicate coronavirus-19. Ebola Screen: No symptoms or risks identified at this time. Initial Sepsis Screen: Does the patient meet any 2 criteria? No. Patient's initial sepsis screen is negative. Does the patient have a suspected source of infection? No. Patient's initial sepsis screen is negative. Risk Assessment: Do you want to hurt yourself or someone else? Patient reports no desire to harm self or others. Onset of symptoms was October 02, 2024. 07:37 Method Of Arrival: Ambulatory iw 07:37 Acuity: PATIENCE 4 iw Triage Assessment: 09:00 General: Appears in no apparent distress. Behavior is calm, cooperative. iw Historical: - Allergies: 07:38 No Known Allergies; iw - Home Meds: 07:38 None [Active]; iw - PMHx: 07:38 None; iw - PSHx: 07:38 None; iw - Immunization history:: Adult Immunizations not up to date. - Infectious Disease History:: Denies. - Social history:: Smoking status: Patient denies any tobacco usage or history of. Screenin:00 Nutritional screening: No deficits noted. iw 09:00 Tuberculosis screening: No symptoms or risk factors identified. iw 09:46 [facility] ED Fall Risk Assessment (Adult) History of falling in the last 3 months, iw including since admission No falls in past 3 months (0 pts) Confusion or Disorientation No (0 pts) Intoxicated or Sedated No (0 pts) Impaired Gait No (0 pts) Mobility Assist Device Used No (0 pt) Altered Elimination No (0 pt) Score/Fall Risk Level 0 - 2 = Low Risk Oriented to surroundings, Maintained a safe environment. Abuse screen: Denies threats or abuse. Denies injuries from another. Assessment: 09:00 General: Appears in no apparent distress. Behavior is calm, cooperative. Pain: Denies iw pain. Neuro: Level of Consciousness is awake, alert, obeys commands, Oriented to person, place, time, situation, Moves all extremities. Full function. Cardiovascular: Patient's skin is warm and dry. Respiratory: Respiratory effort is even, unlabored, Respiratory pattern is regular, symmetrical. Respiratory: Reports cough that is pain with cough. Derm: Skin is intact, is healthy with good turgor. Musculoskeletal: Range of motion: intact in all extremities. Vital Signs: 07:37 BP 126 / 77; Pulse 67; Resp 16; Temp 98.6; Pulse Ox 99% on R/A; Weight 72.57 kg; Height iw 5 ft. 5 in. ; 07:37 Body Mass Index 26.63 (72.57 kg, 165.1 cm) iw ED Course: 07:18 Patient arrived in ED. cj3 07:38 Triage completed. iw 07:38 Arm band placed on. iw 07:48 Tayo Sawant MD is Attending Physician. ec2 08:12 CXR XRAY In Process Unspecified. EDMS 08:23 Group A Streptococcus Rapid Sent. zm 08:23 COVID-19 Ag + Flu A+B Ag Sent. zm 08:24 Sheryl Hill, RN is Primary Nurse. iw 09:00 Patient has correct armband on for positive identification. Provided Education on: . iw 09:46 No provider procedures requiring assistance completed. Patient did not have IV access iw during this emergency room visit. Administered Medications: 08:41 Drug: Acetaminophen PO 1000 mg PO once Route: PO; iw 09:00 Follow up: Response: No adverse reaction iw 08:41 Drug: Ibuprofen PO 800 mg PO once Route: PO; iw 09:00 Follow up: Response: No adverse reaction iw 09:12 Drug: Tessalon Perle PO 200 mg PO once Route: PO; iw 09:30 Follow up: Response: No adverse reaction iw Medication: 09:00 VIS not applicable for this client. iw Outcome: 09:18 Discharge ordered by . ec2 09:47 Discharged to home ambulatory, iw 09:47 Condition: good 09:47 Discharge instructions given to patient, Instructed on discharge instructions, follow up and referral plans. Demonstrated understanding of instructions, follow-up care, 09:47 Patient left the ED. iw Signatures: Dispatcher [employer] EDSheryl Bella, RN RN Susannah Girard Edwin, MD MD ec2 Kylie Cotto cj3
--- NOTE | 2024-10-23 09:19 | EDPHYS ---
Physician Documentation [facility] Name: Mejia Irene III Age: 39 yrs Sex: Male : 1985 Arrival Date: 10/23/2024 Time: 07:11 Bed DIS1 Private MD: ED Physician Tayo Sawant HPI: 10/23 08:03 This 39 yrs old Male presents to ER via Ambulatory with complaints of Flu ec2 Symptoms. 08:03 Patient arrives today for evaluation of URI signs and symptoms. Reports multiple weeks ec2 of symptoms. Patient been having cough and congestion as well as myalgias. Patient reports multiple people are sick in the household.. Historical: - Allergies: 07:38 No Known Allergies; iw - Home Meds: 07:38 None [Active]; iw - PMHx: 07:38 None; iw - PSHx: 07:38 None; iw - Immunization history:: Adult Immunizations not up to date. - Infectious Disease History:: Denies. - Social history:: Smoking status: Patient denies any tobacco usage or history of. ROS: 08:04 Constitutional: as per hpi ec2 Exam: 08:04 Constitutional: GEN: NAD Head: atraumatic Eyes: EOMI Ears: External ears are ec2 normal. CV: regular rate LUNGS: no respiratory distress, no wheezes or rales or rhonchi ABD: non-distended SKIN: no evidence of rashes MSK: no evidence of trauma Vital Signs: 07:37 BP 126 / 77; Pulse 67; Resp 16; Temp 98.6; Pulse Ox 99% on R/A; Weight 72.57 kg; Height iw 5 ft. 5 in. ; 07:37 Body Mass Index 26.63 (72.57 kg, 165.1 cm) iw MDM: 07:54 Medical Screening Exam initiated ec2 08:05 Data reviewed: vital signs, nurses notes. ED course: Patient arrives today for URI ec2 signs and symptoms ongoing for multiple weeks. Examination is revealing for nontoxic individuals otherwise in no acute distress with a reassuring cardiopulmonary examination. Will obtain viral swabs, chest x-ray. DDx includes viral infection, pneumonia, doubt pharyngitis. 09:20 ED course: Viral swab and chest x-ray negative.on reassessment, pt w/ improvement in ec2 s/s, will d/c to home, return precautions. 10/23 08:01 Order name: COVID-19 Ag + Flu A+B Ag; Complete Time: 09:06 ec2 10/23 08:01 Order name: Group A Streptococcus Rapid; Complete Time: 09:06 ec2 10/23 09:00 Order name: Throat Culture EDRI 10/23 08:01 Order name: CXR XRAY; Complete Time: 08:50 ec2 Administered Medications: 08:41 Drug: Acetaminophen PO 1000 mg PO once Route: PO; iw 09:00 Follow up: Response: No adverse reaction iw 08:41 Drug: Ibuprofen PO 800 mg PO once Route: PO; iw 09:00 Follow up: Response: No adverse reaction iw 09:12 Drug: Tessalon Perle PO 200 mg PO once Route: PO; iw 09:30 Follow up: Response: No adverse reaction iw Disposition Summary: 10/23/24 09:18 Discharge Ordered Notes: Location: Home ec2 Condition: Stable ec2 Diagnosis - Viral infection, unspecified ec2 Followup: ec2 - With: Private Physician - When: - Reason: Re-evaluation by your physician Discharge Instructions: - Discharge Summary Sheet ec2 - Viral Illness, Adult ec2 Forms: - Work release form ec2 - Medication Reconciliation Form ec2 - Antibiotic Education ec2 - Prescription Opioid Use ec2 - Patient Portal Instructions ec2 - Leadership Thank You Letter ec2 Signatures: Dispatcher [employer] Sheryl Guillaume RN RN iw Tayo Sawant MD MD ec2
[2024-10-23 10:01] VITALS: BP 126/77; TEMP 98.6; O2SAT 99
== END 2024-10-23 09:47 | disposition home or self-care (01) ==
LOC: ER 07:11
DX: B34.9 Viral infection, unspecified (principal); Z11.52 Encounter for screening for COVID-19
CPT/HCPCS: 36415; 71045; 87070; 87428; 99283